=== PATIENT | female | born 1940 | race Caucasian/White ===

== ENCOUNTER → 2017-08-30 | Outpatient (CLI) | payer MEDICARE, BC ==
[2017-08-30 18:17] LABS: Basophils # (A) 0.1 k/uL (0-0.2); Basophils % (A) 1 %; Eosinophils # (A) 0.1 k/uL (0-0.7); Eosinophils % (A) 1 %; HCT 46.9 % (34.0-46.0); HGB 15.2 gm/dL (11.4-16.0); Lymphocytes # (A) 1.6 k/uL (1.0-4.8); Lymphocytes % (A) 17 %; MCH 29.5 pg (25.0-35.0); MCHC 32.4 g/dL (31.0-37.0); MCV 91.1 fL (80.0-100.0); Mean Platelet Volume 7.5; Monocytes # (A) 0.5 k/uL (0-1.0); Monocytes % (A) 5 %; Neutrophils # (A) 7.1 k/uL (1.3-7.7); Neutrophils % (A) 74 %; Platelet Count 365 k/uL (150-450); RBC 5.16 m/uL (3.80-5.40); RDW 13.9 % (11.5-15.5); WBC 9.6 k/uL (3.8-10.6)
[2017-08-30 18:27] LABS: ALT 28 U/L (9-52); AST 33 U/L (14-36); Albumin 4.6 g/dL (3.5-5.0); Alkaline Phosphatase 100 U/L (38-126); Anion Gap 12 mmol/L; Blood Urea Nitrogen 24 mg/dL (7-17); Calcium 10.7 mg/dL (8.4-10.2); Carbon Dioxide 28 mmol/L (22-30); Chloride 102 mmol/L (98-107); Glucose 96 mg/dL (74-99); Potassium 4.8 mmol/L (3.5-5.1); Sodium 142 mmol/L (137-145); Total Bilirubin 0.4 mg/dL (0.2-1.3); Total Protein 7.6 g/dL (6.3-8.2)
[2017-08-31 00:59] LABS: Vitamin D 25 Hydroxy 23.5 ng/mL (30.0-100.0)
== END | disposition home or self-care (01) ==
LOC: MMGSC 12:42
PROVIDERS: ATTEND Family Medicine
DX: E55.9 Vitamin D deficiency, unspecified (principal); F98.8 Other specified behavioral and emotional disorders with onset usually occurring in childhood and adolescence; R59.1 Generalized enlarged lymph nodes
CPT/HCPCS: 36415; 80053; 82306; 82607; 83735; 85025

== ENCOUNTER → 2017-10-03 | Outpatient (CLI) | payer MEDICARE, BC ==
--- NOTE | 2017-10-03 18:23 | MR ---
EXAMINATION TYPE: MR foot LT wo con DATE OF EXAM: 10/03/2017 COMPARISON: NONE HISTORY: Stress fracture, left foot second metatarsal. Possible Celis's neuroma second interspace. Standard multiplanar, multisequence MRI departmental protocol Multiplanar, multisequence images of the left foot were acquired. Contrast was not administered. This does limit evaluation for Celis's neuroma. FINDINGS: No evidence for abnormal bone marrow signal to suggest stress fracture or displaced fracture. No evid ence for subluxation. There is degenerative narrowing involving the first metatarsal phalangeal joint as well as the interphalangeal joint. Cystic degenerative change involving the proximal phalanx of t he first toe as well as the middle phalanx of the second toe and proximal phalanx of the third toe. N o evidence for Celis's neuroma study is limited given lack of contrast administration. Soft tissues appear to be IMPRESSION: 1. Degenerative changes as discussed. 2. No evidence for stress fracture or Celis's neuroma at this time.
== END | disposition home or self-care (01) ==
LOC: RADMRIMAIN 14:54
PROVIDERS: ATTEND Podiatrist Foot Surgery
DX: G57.62 Lesion of plantar nerve, left lower limb (principal); Z87.81 Personal history of (healed) traumatic fracture

== ENCOUNTER → 2018-05-16 | Outpatient (CLI) | payer MEDICARE, BC ==
[2018-05-16 18:55] LABS: T4, Free (Free Thyroxine) 1.2 ng/dL (0.80-1.80)
== END | disposition home or self-care (01) ==
LOC: LABWHC1 11:58
PROVIDERS: ATTEND Internal Medicine Endocrinology, Diabetes & Metabolism
DX: E05.90 Thyrotoxicosis, unspecified without thyrotoxic crisis or storm (principal)
CPT/HCPCS: 36415; 84439; 84443; 84445; 84480

== ENCOUNTER → 2020-02-22 | Outpatient (CLI) | payer MEDICARE, BC ==
--- NOTE | 2020-02-26 09:26 | PE ---
EXAMINATION TYPE: PET CT fusion skull to thigh DATE OF EXAM: 02/22/2020 COMPARISON: NONE HISTORY: Right-sided breast cancer invasive ductal carcinoma initial staging study. Diagnosed and tr eated with surgery and radiation treatment 2013. TECHNIQUE: Following the intravenous administration of 12.93 mCi of F-18 FDG, whole body images are performed from the skull base to the midthigh. Images are reviewed on the computer in the coronal, a xial, and sagittal planes. Reconstructed rotating images are created on independent workstation and reviewed on the computer. A noncontrast CT is performed in conjunction with the PET scan. SCAN: Initial Scan FINDINGS: SKULL BASE AND NECK: No areas of abnormal hypermetabolic uptake. CHEST, MEDIASTINUM, AND HILAR REGION: Surgical changes upper outer aspect right breast with multiple surgical clips seen near axial image 90 for reference. Additional surgical clips right axilla near ax ial image 74. No suspicious hypermetabolic uptake in the thorax including at the surgical levels. ABDOMEN AND PELVIS: Normal excretion is seen. No suspicious hypermetabolic uptake. OSSEOUS STRUCTURES: Diffuse hypermetabolic uptake involving the T12 vertebra which has prominent trab ecula and increased sclerosis, max SUV is 5.36. OTHER CT: Mild calcified plaque bilateral carotid bulb level. Moderate underlying emphysematous change. There is ametabolic 6 mm posterior right upper lobe nodule axial image 74. There is 1.7 cm focus of groundglass opacity posterior right upper lobe axial image 8 7. Additional smaller focal areas of groundglass opacity right lung noted for reference axial image 1 02 centrally. Correlate for possible multifocal pneumonia. Mild to moderate scattered lower lung line ar scarring and/or atelectasis. There is 6 mm calcified lingular nodule or granuloma axial image 106. There are large calcified left suprahilar and AP window lymph nodes. Findings consistent with chronic granulomatous disease. Surgica l changes at level of aortic root. Coronary artery calcification is present. Moderate calcified plaque of the aorta extends into branch vessels. Sigmoid colonic diverticulosis. S cattered pelvic phleboliths. Underlying levoconvex scoliosis centered upper thoracic spine. IMPRESSION: Diffuse Hypermetabolic uptake in the trabeculated sclerotic T12 vertebra consider Paget's disease versus single osseous metastatic lesion, latter felt less likely but not excluded.
== END | disposition home or self-care (01) ==
LOC: RADPETMAIN 16:29
PROVIDERS: ATTEND Internal Medicine Hematology & Oncology
DX: C50.411 Malignant neoplasm of upper-outer quadrant of right female breast (principal); G95.89 Other specified diseases of spinal cord
CPT/HCPCS: 78815; A9552

== ENCOUNTER 2024-03-25 13:38 | Emergency (ER) | payer MEDICARE, BC ==
[2024-03-25 13:42] VITALS: TEMP 98.1
--- NOTE | 2024-03-25 13:48 | ED ---
Lower Extremity Injury HPI - General Chief Complaint: Extremity Injury, Lower Stated Complaint: leg injury Time Seen by Provider: 03/25/24 13:48 Source: patient, RN notes reviewed Mode of arrival: ambulatory Limitations: no limitations - History of Present Illness Initial Comments: This is an 84-year-old female presents emergency department with her son and [id number] for chief complaint of right knee, thigh, right hip pain. It is reported that patient was on the riding lawnmower yesterday when the chair tipped forward and she fell onto her right knee. She denies hitting her head or loss of conscious at the time of this injury. Denies blood thinner use. States that over the past day she has had worsening pain and has been unable to bear weight on the right knee. Denies other injuries at the time. No other acute complaints at this time. States that she has been taking Wayne at home with minimal relief. denies previous surgeries of the right leg including joint replacements. - Related Data Home Medications Medication Instructions Recorded Confirmed Anastrozole [Arimidex] 1 mg PO DAILY 02/06/16 02/10/16 Ascorbic Acid [Vitamin C] 500 mg PO BID 02/06/16 02/06/16 Cholecalciferol [Vitamin D3] 1,000 unit PO DAILY 02/06/16 02/06/16 Previous Rx's Medication Instructions Recorded Acetaminophen-Codeine 300-30mg 1 tab PO Q4H PRN #30 tablet 02/10/16 [Tylenol #3] oxyCODONE-APAP 5-325MG [Percocet 1 tab PO Q4HR PRN 3 Days #18 tab 03/25/24 5-325 mg] Allergies Allergy/AdvReac Type Severity Reaction Status Date / Time Sulfa (Sulfonamide Allergy Rash/Hives Verified 03/25/24 13:42 Antibiotics) cat gut Allergy Rash/Hives Uncoded 03/25/24 13:42 Review of Systems ROS Statement: Those systems with pertinent positive or pertinent negative responses have been documented in the HPI. ROS Other: All systems not noted in ROS Statement are negative. Past Medical History Past Medical History: Cancer, Hyperlipidemia Additional Past Medical History / Comment(s): osteoporosis History of Any Multi-Drug Resistant Organisms: None Reported Past Surgical History: Breast Surgery Additional Past Surgical History / Comment(s): lumpectomy Rt breast, no chemo but did have radiation Past Anesthesia/Blood Transfusion Reactions: No Reported Reaction Past Psychological History: No Psychological Hx Reported Smoking Status: Current every day smoker Past Alcohol Use History: Rare Past Drug Use History: None Reported - Past Family History Mother Family Medical History: No Reported History General Exam Limitations: no limitations General appearance: alert, in no apparent distress Eye exam: Present: normal appearance, PERRL, EOMI. Absent: scleral icterus, conjunctival injection, periorbital swelling Neck exam: Present: normal inspection. Absent: tenderness, meningismus, lymphadenopathy Respiratory exam: Present: normal lung sounds bilaterally. Absent: respiratory distress, wheezes, rales, rhonchi, stridor Cardiovascular Exam: Present: regular rate, normal rhythm, normal heart sounds. Absent: systolic murmur, diastolic murmur, rubs, gallop, clicks GI/Abdominal exam: Present: soft, normal bowel sounds. Absent: distended, tenderness, guarding, rebound, rigid Right Hip exam: Present: normal inspection, tenderness. Absent: full ROM Knee exam: Present: normal inspection, tenderness. Absent: full ROM, swelling, abrasion, laceration, ecchymosis, deformity Ankle exam: Present: normal inspection, full ROM. Absent: tenderness, swelling Foot/Toe exam: Present: normal inspection, full ROM. Absent: tenderness, swelling Neurovascular tendon exam: Present: no vascular compromise. Absent: pulse deficit, abnormal cap refill Gait: not tested/not observed Back exam: Present: normal inspection Skin exam: Present: warm, dry, intact, normal color. Absent: rash Course Vital Signs 03/25/24 13:40 Temperature 98.1 F Pulse Rate 96 Respiratory 20 Rate Blood Pressure 146/68 O2 Sat by Pulse 98 Oximetry Medical Decision Making - Medical Decision Making Was pt. sent in by a medical professional or institution (, PA, MILL CONTROL OPERATOR, urgent care, hospital, or shelter...) When possible be specific @ -No Did you speak to anyone other than the patient for history (EMS, parent, family, police, friend...)? What history was obtained from this source @ -No Did you review nursing and triage notes (agree or disagree)? Why? @ -I reviewed and agree with nursing and triage notes Were old charts reviewed (outside hosp., previous admission, EMS record, old EKG, old radiological studies, urgent care reports/EKG's, shelter records)? Report findings @ -No old charts were reviewed Differential Diagnosis (chest pain, altered mental status, abdominal pain women, abdominal pain men, vaginal bleeding, weakness, fever, dyspnea, syncope, headache, dizziness, GI bleed, back pain, seizure, CVA, palpatations, mental health, musculoskeletal)? @ -Differential Musculoskeletal Muscular strain, contusion, ligament sprain, fracture, arthritis, septic arthritis, bursitis, cellulitis, muscle spasm, nerve compression, DVT, arterial occlusion, herpes zoster, electrolyte abnormality, tumor.... This is not meant to be in all inclusive list EKG interpreted by me (3pts min.). @ -None X-rays interpreted by me (1pt min.). @ -Xray of the right hip, right knee, right femur reveal abnormal cortex in the mid diaphysis of the right femur in 2 projections, further evaluation recommended with MRI with IV contrast no evidence of fracture CT interpreted by me (1pt min.). @ -CT right lower extremity without contrast reveals abnormal soft tissue in the bone marrow with cortical erosion, no evidence of acute fracture. U/S interpreted by me (1pt. min.). @ -None done What testing was considered but not performed or refused? (CT, X-rays, U/S, labs)? Why? @ -None What meds were considered but not given or refused? Why? @ -None Did you discuss the management of the patient with other professionals (professionals i.e. , PA, MILL CONTROL OPERATOR, lab, RT, psych nurse, clinical social work therapist, funeral service manager, teacher, personnel training officer, manager case management)? Give summary @ -No Was smoking cessation discussed for >3mins.? @ -No Was critical care preformed (if so, how long)? @ -No Were there social determinants of health that impacted care today? How? (Homelessness, low income, unemployed, alcoholism, drug addiction, transporta tion, low edu. Level, literacy, decrease access to med. care, usp, rehab)? @ -No Was there de-escalation of care discussed even if they declined (Discuss DNR or withdrawal of care, Hospice)? DNR status @ -No What co-morbidities impacted this encounter? (DM, HTN, Smoking, COPD, CAD, Cancer, CVA, ARF, Chemo, Hep., AIDS, mental health diagnosis, sleep apnea, morbid obesity)? @ -None Was patient admitted / discharged? Hospital course, mention meds given and route, prescriptions, significant lab abnormalities, going to OR and other pertinent info. @ -discharged. 84-year-old female with right knee, hip, leg pain. On evaluation patient noted to have moderate pain to palpation over the right knee, thigh and hip. Patient is unable to complete full range of motion of the hip due to pain. Pulses are intact. Sensation is intact. Patient is symptomatically treated with analgesics pending x-ray imaging. X-rays negative for acute process. Due to patient's severe pain and unable to bear weight she will be sent for CT imaging for further evaluation. She is in agreement with this plan. CT concerning for abnormal soft tissue in the bone marrow with cortical erosion. Lengthy discussion with patient and patient's family at bedside recommend that she follows up early next week within the next 24 to 48 hours with her primary care provider and discuss hospice and as patient's symptoms are likely secondary to metastatic bone disease. Patient states that she does have a history of metastatic breast cancer with lesions of her thoracic spine and of her legs. Patient has been taking hydrocodone at home that was prescribed for a previous rib fracture with minimal relief. Recommend that patient maintain nonweightbearing status via wheelchair until follow-up has been established. Additionally, she will be sent a prescription for pain medication that she can take as needed over the next few days as well. Patient is stable for discharge. Discussion for possible admission for intractable pain with oncology and hospice consult however she has declined. States that she has a dog at home and would like to return home and follow-up outpatient as needed. discussed with Dr. Ham Undiagnosed new problem with uncertain prognosis? @ -No Drug Therapy requiring intensive monitoring for toxicity (Heparin, Nitro, Insulin, Cardizem)? @ -No Were any procedures done? @ -No Diagnosis/symptom? @ -Bone erosion of left femur, metastatic disease, leg pain Acute, or Chronic, or Acute on Chronic? @ -Acute on chronic Uncomplicated (without systemic symptoms) or Complicated (systemic symptoms)? @ -complicated Side effects of treatment? @ -No Exacerbation, Progression, or Severe Exacerbation? @ -No Poses a threat to life or bodily function? How? (Chest pain, [place], [place], pneumonia, PE, COPD, DKA, ARF, appy, cholecystitis, CVA, Diverticulitis, Homicidal, Suicidal, threat to staff... and all critical care pts) @ -No Disposition Clinical Impression: Bone erosion, Metastatic disease, Leg pain Disposition: HOME SELF-CARE Condition: Stable Instructions (If sedation given, give patient instructions): Osteolysis (ED) Prescriptions: oxyCODONE-APAP 5-325MG [Percocet 5-325 mg] 1 tab PO Q4HR PRN 3 Days #18 tab PRN Reason: Severe Pain (Scale 7 To 10) Is patient prescribed a controlled substance at d/c from ED?: Yes When asked, does pt state using other controlled substances?: No If prescribed controlled substance>3 days was MAPS reviewed?: Prescribed <3 Days Referrals: Julio Veliz MD [Primary Care Provider] - 1-2 days [facility] [NON-STAFF] - 1-2 days [facility] [NON-STAFF] - 1-2 days Time of Disposition: 16:56
[2024-03-25] MEDS: MORPHINE SULFATE 4 MG/ML SYRINGE IM STA (13:59)
--- NOTE | 2024-03-25 14:37 | XR ---
EXAMINATION TYPE: XR Hip RT and AP Pelvis, XR knee complete RT, XR femur RT DATE OF EXAM: 03/25/2024 2:23 PM CLINICAL INDICATION: Female, 84 years old with history of fall, injury, pain; [facility] COMPARISON: None. TECHNIQUE: XR Hip RT and AP Pelvis, XR knee complete RT, XR femur RT; hip was examined in the frontal and lateral projections and a AP pelvis. Frontal and lateral views of the right femur. Frontal, late ral and oblique views of the right knee. FINDINGS: Abnormal lobe cortex erosion of the mid diaphysis of the femur seen on 2 views no evidence of fracture. Multilevel degeneration changes spine. Pelvic phleboliths. Atherosclerosis of the arterial vasculature. IMPRESSION: 1. Abnormal cortex in the mid diaphysis of the right femur in 2 projections further evaluation recom mended with MRI with IV contrast. 2. No evidence of fracture. [facility], , 03/25/2024 2:35 PM
--- NOTE | 2024-03-25 16:11 | CT ---
EXAMINATION TYPE: CT lower extremity RT wo con CT DLP: 391.6 mGycm, Automated exposure control for dose reduction was used. DATE OF EXAM: 03/25/2024 3:33 PM COMPARISON: Extremity radiograph same day. CLINICAL INDICATION: Female, 84 years old with history of hip, leg, knee pain after injury; PHH, RT t high pain after injury TECHNIQUE: Axial images were obtained of the CT lower extremity RT wo con, Additional coronal and sag ittal reformatted images and soft tissue and bone window were obtained for review. 3-D reconstruction was created on a separate workstation. Contrast used: mL of , (None if empty) Oral contrast used: (None if empty) FINDINGS: Soft tissue lesion within the cortex of the right femur diaphysis measuring up to 3.7 x 10 mm in dimension. Additionally there is abnormal soft tissue mass within the bone marrow measuring 8.3 x 1.3 cm. Scalloping of the cortex is seen in the area of this mass. There is no evidence of fractur e, subluxation, or dislocation. No significant soft tissue swelling or joint effusion is identified. No focal muscular atrophy or edema is identified. No radiopaque foreign body identified. Atherosclerosis of the arterial vasculature. Scattered colonic diverticula present. IMPRESSION: 1. Abnormal soft tissue in the bone marrow with cortical erosion correlate for history of malignancy . Given the thinning of the cortex, patient should consider nonweightbearing as impending fracture ma y be likely. Oncologic workup recommended. 2. No evidence of fracture. [facility], , 03/25/2024 4:09 PM
[2024-03-25] MEDS: HYDROmorphone 1 MG/ML 1 ML SYRINGE IM STA (17:05)
[2024-03-25 17:31] VITALS: BP 185/95; PULSE 102; RESP 16
== END 2024-03-25 17:41 | disposition home or self-care (01) ==
LOC: EC 13:38
CPT/HCPCS: 73502; 96372; 99284